=== PATIENT | male | born 1945 | race Caucasian/White ===

== ENCOUNTER 2023-03-27 12:52 | Emergency (ER) | payer OTHER ==
[~2023-03-27] VITALS: Ht 185.4 cm; Wt 68.0 kg
[~2023-03-27 12:52] MED LIST: ACET500 PO; ALBU90OI INH; AZIT250 PO; GUAI600T33 PO; IBUP200 PO; OXYC5 PO; PRED20 PO; VISBIOME 112.51 EACH PO; WIXELA 250-501 EAC1 INH
[2023-03-27 13:41] LABS: BASOPHILS ABSOLUTE AUTO 0.03 K/mm3 (0.00-0.23); BASOPHILS PERCENT AUTO 0 % (0-2); EOSINOPHILS PERCENT AUTO 9 % (0-6); Hematocrit 39.4 % (37.0-53.0); Hemoglobin 13.1 g/dL (13.5-17.5); IMMATURE GRAN ABSOLUTE AUTO 0.02 K/mm3 (0.00-0.10); IMMATURE GRAN PERCENT AUTO 0 % (0-1); LYMPHOCYTES ABSOLUTE AUTO 0.48 K/mm3 (0.84-5.20); LYMPHOCYTES PERCENT AUTO 7 % (21-46); MONOCYTES ABSOLUTE AUTO 0.79 K/mm3 (0.16-1.47); MONOCYTES PERCENT AUTO 12 % (4-13); Mean Corpuscular HGB 32.9 pg (26.0-34.0); Mean Corpuscular HGB Conc 33.2 g/dL (31.5-36.5); Mean Corpuscular Volume 99 fL (80-100); NEUTROPHILS ABSOLUTE AUTO 4.85 K/mm3 (1.96-9.15); NEUTROPHILS PERCENT AUTO 72 % (41-73); Platelet Count 248 K/mm3 (150-400); RDW Coefficient Variation 13.3 % (11.7-14.2); RDW Standard Deviation 48.8 fL (35.1-46.3); Red Blood Cell Count 3.98 M/mm3 (4.30-5.90); White Blood Cell Count 6.77 K/mm3 (4.00-11.30)
[2023-03-27 13:58] LABS: Albumin, Blood 3.4 g/dL (3.4-5.0); Albumin/Globulin Ratio 0.9 (0.8-1.8); Bun/Creatinine Ratio 28.9 (12.0-20.0); Calcium, Blood 8.6 mg/dL (8.5-10.1); Creatinine, Blood 0.66 mg/dL (0.60-1.20); Globulin, Blood 3.8 g/dL (2.2-4.0); Potassium, Blood 3.8 mmol/L (3.5-5.5); Total Protein, Blood 7.2 g/dL (6.4-8.2)
[2023-03-27 15:15] VITALS: BP 117/79
== END 2023-03-27 15:15 | disposition home or self-care (01) ==
LOC: ER 12:52
PROVIDERS: Emergency Medicine
DX: J93.9 Pneumothorax, unspecified (principal); Z87.891 Personal history of nicotine dependence; J44.9 Chronic obstructive pulmonary disease, unspecified; Z79.51 Long term (current) use of inhaled steroids; Z79.899 Other long term (current) drug therapy; Z79.2 Long term (current) use of antibiotics
CPT/HCPCS: 32551; 71045; 80053; 83880; 84484; 85025; 93005; 93010; 94644; 94664; 96374-59; 99284-25; J2930; J7030

== ENCOUNTER 2023-03-30 08:56 | Inpatient (IN) | payer OTHER ==
[~2023-03-30] VITALS: Ht 185.4 cm; Wt 49.0 kg
[2023-03-30 10:44] LABS: BASOPHILS ABSOLUTE AUTO 0.04 K/mm3 (0.00-0.23); BASOPHILS PERCENT AUTO 1 % (0-2); EOSINOPHILS ABSOLUTE AUTO 0.66 K/mm3 (0.00-0.68); EOSINOPHILS PERCENT AUTO 8 % (0-6); Hematocrit 43.2 % (37.0-53.0); Hemoglobin 14.1 g/dL (13.5-17.5); IMMATURE GRAN ABSOLUTE AUTO 0.02 K/mm3 (0.00-0.10); IMMATURE GRAN PERCENT AUTO 0 % (0-1); LYMPHOCYTES ABSOLUTE AUTO 0.89 K/mm3 (0.84-5.20); LYMPHOCYTES PERCENT AUTO 10 % (21-46); MONOCYTES ABSOLUTE AUTO 0.71 K/mm3 (0.16-1.47); MONOCYTES PERCENT AUTO 8 % (4-13); Mean Corpuscular HGB 32.9 pg (26.0-34.0); Mean Corpuscular HGB Conc 32.6 g/dL (31.5-36.5); Mean Corpuscular Volume 101 fL (80-100); Mean Platelet Volume 8.6 fL (9.1-12.4); NEUTROPHILS ABSOLUTE AUTO 6.38 K/mm3 (1.96-9.15); NEUTROPHILS PERCENT AUTO 73 % (41-73); Platelet Count 288 K/mm3 (150-400); RDW Coefficient Variation 13.6 % (11.7-14.2); RDW Standard Deviation 50.7 fL (35.1-46.3); Red Blood Cell Count 4.29 M/mm3 (4.30-5.90)
[2023-03-30 10:51] LABS: Albumin, Blood 3.6 g/dL (3.4-5.0); Albumin/Globulin Ratio 0.9 (0.8-1.8); Bilirubin, Total 0.8 mg/dL (0.1-1.0); Bun/Creatinine Ratio 36.3 (12.0-20.0); Calcium, Blood 8.9 mg/dL (8.5-10.1); Creatinine, Blood 0.55 mg/dL (0.60-1.20); Globulin, Blood 3.8 g/dL (2.2-4.0); Potassium, Blood 4.4 mmol/L (3.5-5.5); Total Protein, Blood 7.4 g/dL (6.4-8.2)
[2023-03-30 15:23] VITALS: BP 107/70
--- NOTE | 2023-03-30 16:46 | NUR ---
EVENING NOTE PT RESTING QUIETLY. DR REYES ROUNDED ON PT. CALLED ICU TO COME VERIFY FUNCTION OF CHEST TUBE. CHEST TUBE TO WALL SUCTION AT [address] REYES AWARE OF AIR LEAK. CHEST TUBE TUBING JOINTS TAPED. TUBE CLOTHES PINNED TO GOWN. VSS. MEDICATED FOR PAIN X1. PT DRINKING ORANGE SODA AND RESTING. VOIDED X1. FIRE PREVENTION EDCUATION AND IGNITION SOURCE DONE. PT EXPRESSED UNDERSTANDING. CONTINUE POC.
[2023-03-31 05:32] VITALS: BP 99/63
--- NOTE | 2023-03-31 06:36 | NUR ---
VSS ON RA, AOX4, USED URINAL LAST NIGHT, UNDERSTANDS IMPORTANCE OF CHEST TUBE. 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 DARK URINE, PT DRANK MORE SODA THAN WATER LAST NIGHT. DENIES SIGNIFICANT PAIN. CXR DONE AROUND 0600, AWAITING RESULTS.
[2023-03-31 07:23] VITALS: BP 101/68
--- NOTE | 2023-03-31 14:07 | NUR ---
PT ADVISED OF FIRE PROTOCOLS AND PROCEDURES. EDUCATION PROVIDED ABOUT IGNITION SOURCES. PT IS ON RA. PT VERBALIZED UNDERSTANDING.
[2023-03-31 15:27] VITALS: BP 102/72
--- NOTE | 2023-03-31 18:14 | NUR ---
SHIFT SUMMARY PT AOX4, INDEPENDENT IN THE ROOM WITH HELP WITH LINES. CHEST TUBE IN PLACE, PATENT, AND DRAINING. PT PLACED ON THIS AFTERNOON DUE TO SOB BY RT. ORDER IN THE CHART. C/O NECK PAIN AND MEDICATED PER THE EMAR. BREATHING TX IN PLACE. WILL REPORT TO ONCOMING NURSE.
[2023-03-31 20:02] VITALS: BP 97/68
[2023-04-01 02:05] VITALS: BP 96/68
--- NOTE | 2023-04-01 04:55 | NUR ---
SHIFT SUMMARY: WILFREDO IS A&OX4. VSS, NO ACUTE EVENTS OVERNIGHT. PT DID REQUIRE AN INCREASE IN THE O2 VIA NC TO 3 LPM WHILE SLEEPING D/T DESATURATION IN THE 80'S. PT IS CONTINENT OF BLADDER AND BOWEL, USING THE URINAL AND BEDSIDE COMMODE WITHOUT DIFFICULTY. HE IS TOLERATING PO INTAKE WELL AND USES THE CALL LIGHT APPROPRIATELY. CHEST TUBE TO -20 SUCTION. HE IS LYING IN BED WITH THE CALL LIGHT IN REACH. WCTM UNTIL REPORT IS GIVEN TO DAY SHIFT RN. CONTINUOUS PULSE OXIMETER IN PLACE.
[2023-04-01 07:50] VITALS: BP 96/63
[2023-04-01 16:00] VITALS: BP 91/53
--- NOTE | 2023-04-01 16:19 | NUR ---
DAYSHIFT SUMMARY Patient alert & oriented x4. Chest tube in placed connected to suction. MD reported leak is present, no plans to remove today. Will continue to montior chest tube. Patient reports mild-moderate pain, PRN Oxycodone effective. Provided education to patient r/t ignition sources and risk of injury when oxygen in use. Patient verbalized understanding and denies smoking and or ignition sources in possession. Vital signs stable, afebrile. Will continue plan of care.
[2023-04-01 19:44] VITALS: BP 101/67
[2023-04-02 03:30] VITALS: BP 90/65
--- NOTE | 2023-04-02 05:14 | NUR ---
SHIFT SUMMARY: WILFREDO IS A&OX4. VSS, NO ACUTE EVENTS OVERNIGHT. HE IS TOLERATING PO INTAKE WELL, UTILIZING THE URINAL WITHOUT DIFFICULTY, SCDs IN PLACE, AND USES THE CALL LIGHT APPROPRIATELY. CHEST TUBE TO LEFT UPPER CHEST WALL TO -20 SUCTION, BUBBLES PRESENT IN CANISTER. HE REPORTS ADEQUATE PAIN CONTROL WITH 5 MG OF OXYCODONE. HE IS LYING IN BED WITH THE CALL LIGHT IN REACH, CONTINUOUS PULSE OX IN PLACE. [facility] UTIL REPORT IS GIVEN TO DAY SHIFT RN.
[2023-04-02 07:55] VITALS: BP 93/60
--- NOTE | 2023-04-02 18:24 | NUR ---
PT IS A/OX4, PLEASANT AND COOPERATIVE. THE PT IS UP WITH ASSIST. PT IS ON 02 @ 2L/MIN VIA NC., CONTINUOS BIOX ON PT DESAT'S WITH O2 OFF BUT QUICKLY RECOVERS WHEN APPLIED. PT HAS A CHEST TUBE SECURE AND INPLACE. THE PT WAS MEDICATED FOR PAIN X1 SO FAR TODAY. CALL LIGHT IN REACH. WILL CONTINUE TO MONITOR AND ASSESS FOR CHANGES
[2023-04-02 19:42] VITALS: BP 105/71
--- NOTE | 2023-04-02 22:22 | NUR ---
CHEST TUBE LOOKED AT CHEST TUBE HAD EXESS BUBBLING MORE THAN I LIKE TO SEE PT NOT IN DISTRESS O2 AT 94%, I INFORMED THE CHARGE NURSE SORAIDA AND HE REPLIED THAT MD WAS AWARE OR POSSIBLE LEAK. I THEN APPLIED WATER PROOF OCCLUSIVE DRESSING COVERED WITH TEGADERM AND WILL MONITOR. CREPITUS NOTED TO LEFT PECTORUS AND SHOULDER.
--- NOTE | 2023-04-03 03:52 | NUR ---
SHIFT SUMMARY NOTED BEFORE DRESSING OVER CHEST TUBE INSERTION SO FAR HAS HELPED WITH EXCESS BUBBLING BUT STILL NOT COMPLETELY STOPPED, DR SALGUERO NOTIFIED. NO C/O PAIN NOR DISTRESS O2 AT 97% ON HE 2 L. PT UP AT BESIDE BY SELF STATES WILL REQUEST HELP IF WANTING TO SAND UP. PT NOW SLEEPING COMFORTABLEY IN BED.
[2023-04-03 05:12] VITALS: BP 93/61
[2023-04-03 07:39] VITALS: BP 88/60
[2023-04-03 14:44] VITALS: BP 104/68
[2023-04-03 15:55] VITALS: BP 97/64
--- NOTE | 2023-04-03 16:24 | NUR ---
PT IS A/OX4, PLEASANT AND COOPERATIVE. THE PT IS UP TO THE SIDE OF THE BED IND. THE PT APPEARS TO BE BREATHING EASILY ON O2 @ 2L/MIN AT THIS TIME. DR. MONSIVAIS WAS IN TO SEE THE PT THIS AM AND STATED THAT THE CHEST TUBE WAS FUNCTIONING PROPERLY. THE PT WAS MEDICATED FOR PAIN X1 SO FAR THIS SHIFT. CALL LIGHT IN REACH. WILL CONTINUE TO MONITOR AND ASSESS FOR CHANGES
[2023-04-03 19:18] VITALS: BP 98/63
[2023-04-04 03:16] VITALS: BP 84/53
--- NOTE | 2023-04-04 04:01 | NUR ---
SHIFT SUMMARY PT DOING WELL TODAY MAINTIANING HIGH O2 LEVEL CCHEST TUBE IN PLACCE BUT WILL POSSIBLY NEED ANOTHER PLACED TO HELP WITH LUNG EXPANSION. C/O NECK AND SHOULDER PAIN AND WAS MEDICATED VIA ORDERS. ENC PT TO REPOSITION IN BED BUT STATES HE IS VERY COMFORTABLE IN HIS CRAMPPED POSITION.
[2023-04-04 08:13] VITALS: BP 98/63
--- NOTE | 2023-04-04 09:00 | NUR ---
pt laying in bed awake a/ox4, cooperative with care, follows commands well, reports pain in his neck, will medicate, lungs are clear dim t/o, on 2 liters, denies pain with deep breath, c.t in place to lcw, to suction, hrr, no edema noted, ppps+1, cap refill <3sec, vs stable, afebrile, iv site is clear and patent, bt x4, abd flat soft nontender, voids without diff, skin c/w/d, lisa, john, call light in reach.
[2023-04-04 15:33] VITALS: BP 99/67
--- NOTE | 2023-04-04 18:15 | NUR ---
pt doing ok, chest tube unchanged, medicated for pain several times this shift. call light in reach.
[2023-04-04 19:30] VITALS: BP 105/70
[2023-04-05 04:51] VITALS: BP 93/57
--- NOTE | 2023-04-05 04:54 | NUR ---
SHIFT SUMMARY PT DOING WELL TODAY NO CHANGE IN CONDITION MERARI CHEST TUBE WELL EVEN THOUGH SMALL LEAK IS NOTED. PT SAT 97 ON ROOM AIR AT REST. PAIN INCREASED TO NECK AREA MD NOTED HE IS AWARE AND WILL DO XRAY TOMORROW. PT UP AT SIDE OF BED USING URINAL MAINTAINS O2 SAT WITHOUT ANY DISTRESS. PAIN COVERED BY PRESCRIBED MEDICATIONS.
[2023-04-05 07:36] VITALS: BP 93/60
[2023-04-05 15:31] VITALS: BP 98/55
--- NOTE | 2023-04-05 16:13 | NUR ---
Palliative Care Consult for AD/POLST Pt A&OX4 and reports 5/10 pain. He reports current regimen is managing his pain. Pt reports not currently . Has been 3 times in the past and has a son who he does not have contact with. Pt reports currently having a girlfriend. He reports living on a friend's property and he assists with looking out for his friend's mother. Pt reports being anxious about going home due to a lot of choirs that need to be accomplished. Pt reports this is his 3rd occurance of having a pneumothorx, 2 on one side and one on the other. Engaged in therapeutic conversation regarding advanced directives and POLSTs. Educated on AD/POST with Pt reporting wanting to time to consider if he is interested in either. Ended visit to allow Pt to rest. Spoke with Pt's primary RN Arianna and discussed case. Palliative Care will remain available
--- NOTE | 2023-04-05 17:21 | NUR ---
SHIFT SUMMARY PT HAD XR OF NECK/CHEST THIS AM. SHOWED SLIGHT IMPROVEMENT TO PNEUMOTHORAX. PLAN FOR ANOTHER XRAY TOMORROW. PT AGREEABLE TO GET OOB FOR MEALS. UP TO CHAIR FOR LUNCH TODAY. NO OTHER ACUTE CHANGES IN ASSESSMENT AT THIS TIME. SEE EMAR FOR PAIN ACCOUNT DIRECTOR. CALL LIGHT IN REACH. DENIES OTHER NEEDS AT THIS TIME.
--- NOTE | 2023-04-05 18:40 | NUR ---
REFUSED TO GET OUT OF BED FOR DINNER
[2023-04-05 19:50] VITALS: BP 100/65
[2023-04-06 03:57] VITALS: BP 93/62
[2023-04-06 05:32] LABS: BASOPHILS ABSOLUTE AUTO 0.04 K/mm3 (0.00-0.23); BASOPHILS PERCENT AUTO 0 % (0-2); EOSINOPHILS ABSOLUTE AUTO 0.65 K/mm3 (0.00-0.68); EOSINOPHILS PERCENT AUTO 7 % (0-6); Hematocrit 36.3 % (37.0-53.0); Hemoglobin 12.1 g/dL (13.5-17.5); IMMATURE GRAN ABSOLUTE AUTO 0.03 K/mm3 (0.00-0.10); IMMATURE GRAN PERCENT AUTO 0 % (0-1); LYMPHOCYTES ABSOLUTE AUTO 0.53 K/mm3 (0.84-5.20); LYMPHOCYTES PERCENT AUTO 6 % (21-46); MONOCYTES ABSOLUTE AUTO 0.88 K/mm3 (0.16-1.47); MONOCYTES PERCENT AUTO 9 % (4-13); Mean Corpuscular HGB 32.1 pg (26.0-34.0); Mean Corpuscular HGB Conc 33.3 g/dL (31.5-36.5); Mean Corpuscular Volume 96 fL (80-100); Mean Platelet Volume 9.3 fL (9.1-12.4); NEUTROPHILS ABSOLUTE AUTO 7.37 K/mm3 (1.96-9.15); NEUTROPHILS PERCENT AUTO 78 % (41-73); Platelet Count 343 K/mm3 (150-400); RDW Coefficient Variation 13.2 % (11.7-14.2); RDW Standard Deviation 47.1 fL (35.1-46.3); Red Blood Cell Count 3.77 M/mm3 (4.30-5.90)
[2023-04-06 06:01] LABS: Bun/Creatinine Ratio 24.9 (12.0-20.0); Calcium, Blood 8.8 mg/dL (8.5-10.1); Creatinine, Blood 0.64 mg/dL (0.60-1.20); Potassium, Blood 4.1 mmol/L (3.5-5.5)
[2023-04-06 07:33] VITALS: BP 99/69
[2023-04-06 17:25] VITALS: BP 97/54
--- NOTE | 2023-04-06 17:50 | NUR ---
SUMMARY- PT A/O X4. CHEST TUBE TO 30MM/HG SUCTION. 15ML OUTPUT IN 48HRS- CREPITUS TO SURROUNDING AREA OVER CT SITE. PT COARSE UPPER AIRWAY, MOIST FREQ CONGESTED COUGH, NOT CLEARING A LOT OF SECRESIONS. MIN AMOUNT UP INTO TISSUE STRINGY OFF WHITE. ENC PEP DEVICE AND I.S.. UP TO CHAIR FOR MEALS. PLAN FOR PORT CXR TOMORROW- CT OF CHEST CANCELLED FOR NOW UNTIL PT ABLE TO TRANSFER ON WATER SEAL OR CT DC'D. PT TOLERATING ABOUT 25% OF MEALS, TOLERATING ABOUT 2 SUPPLEMENTS A SHIFT WITH ENCOURAGEMENT. NECK PAIN IS NOT CONTROLLED WITH CURRENT REGIMINE. ASKED DR BERMAN ABOUT ADDING ADDITIONAL PAIN MED OR INCREASING OXY, STARTED TORADOL- PT STATES PAIN STILL CONT AT LOWEST 6/10 AFTER MEDS GIVEN. USING HEAT PAD AND ROLL FOR NECK. WILL REPORT TO NOC RN
[2023-04-06 19:28] VITALS: BP 91/62
[2023-04-07 05:06] VITALS: BP 106/66
--- NOTE | 2023-04-07 05:31 | NUR ---
SHIFT SUMMARY PT IS A&O4, UP SB TO THE BR, THORAVENT HOOKED TO 30MM/HG SUCTION PER ORDER, 2L NC, SATS MID 90'S, PRN PAIN MEDICATION GIVEN THIS SHIFT, FIRE MITIGATION EDUCATION PROVIDED, AIR LEAK NOTED IN CHEST TUBE PROVIDER AWARE, PNUEMO SLOWLY RESOLVING, CONTINUE POC
[2023-04-07 06:16] LABS: Bun/Creatinine Ratio 38.6 (12.0-20.0); Calcium, Blood 8.8 mg/dL (8.5-10.1); Creatinine, Blood 0.67 mg/dL (0.60-1.20); Potassium, Blood 4.3 mmol/L (3.5-5.5)
[2023-04-07 07:43] VITALS: BP 94/67
[2023-04-07 10:10] VITALS: BP 91/67
--- NOTE | 2023-04-07 17:27 | NUR ---
SHIFT SUMMARY NO ACUTE CHANGES NOTED DURING SHIFT. PT ALERT AND ORIENTED, CALLS APPROPRIATELY. PT REMAINS ON 2L. PT STILL HAS CHEST TUBE, CONNECTED TO SUCTION @ 30. NO OUTPUT NOTED DURING SHIFT. PT C/O PAIN TO NECK, MEDICATED PER EMAR MULTIPLE TIMES. WILL CONTINUE TO MONITOR. CALL LIGHT WITHIN REACH.
[2023-04-07 19:52] VITALS: BP 105/74
--- NOTE | 2023-04-08 03:06 | NUR ---
SHIFT SUMMARY NOC PT A/O X 4. PLEASANT AND COOPERATIVE WITH CARE. PT HAS CHEST TUBE IN LEFT ANTERIOR CHEST WALL. PNEUMOTHORAX HAS RESOLVED. CHEST TUBE PER DR REYES PROGRESS NOTE TO BE PUT UNDER H20 SEAL AND REMOVED LATER TODAY. PT IS ANXIOUS TO DISCHARGE HOME. ON O2 2L/NC SPO2 >92%. PT CHRONIC NECK PAIN MANAGED PER EMAR. CT SCAN WILL BE PERFORMED TO CHECK CHEST TUBE SEALING. PT IS CURRENTLY RESTING WITH BED IN LOWEST POSITION, AND CALL LIGHT WITHIN REACH. PT EDUCATED ON [facility] FIRE SAFETY IGNITION/EXPLOSIVE NON SMOKING POLICY AND VERBALIZED UNDERSTANDING.
[2023-04-08 04:00] VITALS: BP 101/64
[2023-04-08 07:59] VITALS: BP 102/67
[2023-04-08 16:23] VITALS: BP 102/60
--- NOTE | 2023-04-08 16:28 | NUR ---
REPORT RECEIVED FROM CAYETANO YBARRA. THIS NURSE TO ASSUME CARE AT THIS TIME. PT CHEST TUBE SETTINGS VERIFIED. NO SOURCES OF IGNITION OR RISK FOR FIRE AT THIS TIME.
--- NOTE | 2023-04-08 18:10 | NUR ---
SHIFT SUMMARY PT AXO, PLEASANT AND COOPERATIVE WITH CARE. NO ACUTE CHANGES SINCE THIS NURSE ASSUMED CARE. PT DENIES ANY NEEDS AT THIS TIME. DENIES SOURCES OF IGNITION OR SMOKING. PT RESTING COMFORTABLY AT THIS TIME. BED IN LOW POSITION, CALL LIGHT WITIN REACH
[2023-04-08 20:34] VITALS: BP 101/70
[2023-04-09 03:57] VITALS: BP 100/64
--- NOTE | 2023-04-09 04:34 | NUR ---
SHIFT SUMMARY; NO ACUTE CHANGES OVERNIGHT. THE PT IS AXO X4 AND A STANDBY ASSIST. HOWEVER, T/O THE NIGHT THE PT USES THE URINAL INDEPENDENTLY IN BED. THE PT IS ON 3L NC WITH O2 SATS >90%. THE PT HAS A CHEST TUBE IN THE L UPPER CHEST WALL, IT IS PATENT. THE PT HAS A WET/SEMIPRODUCTIVE COUGH. HOWEVER, THE PT STATES THAT HE TRIES NOT TO COUGH IT HURTS. I EDUCATED THE PT ON THE IMPORTANCE OF COUGHING GIVEN HE HAS PNEUMONIA. THE PT DENIES ANY SOB, CHEST PAIN/PRESSURE OR N/V THIS SHIFT. CURRENTLY THE PT IS SLEEPING IN BED WITH THE BED IN THE LOWEST POSITION AND THE CALL LIGHT AT BEDSIDE. FIRE SAFETY MAINTAINED T/O THE SHIFT. FIRE RISK ASSESSED.
[2023-04-09 07:34] VITALS: BP 92/62
[2023-04-09 14:51] VITALS: BP 97/65
--- NOTE | 2023-04-09 18:39 | NUR ---
SHIFT SUMMARY- PT HAS HAD NO ACUTE CHANGE TODAY. DR HARRIS CAME TO SEE HIM AND STATED THE LUNG IS NOW UP AND INFLATED AND SEEMS TO BE HEALING. PLAN IS TO KEEP THE CHEST TUBE IN FOR A COUPLE MORE DAYS (CONNECTED TO SUCTION) AND THEN ATTEMPT TO DC IT. PT IS IN BED, HE HAS BEEN INDEPENDENT TO THE BSC AND THE CHAIR. PT HAS HAD CHEST TUBES IN THE PAST AND IS AWARE OF THE CAUTION NEEDED WHEN MOVING. PT IS IN BED SITTING UP EATING DINNER. NO CURRENT S&S OF DISTRESS.
[2023-04-09 19:32] VITALS: BP 95/65
[2023-04-10 02:12] VITALS: BP 97/68
--- NOTE | 2023-04-10 04:00 | NUR ---
SHIFT SUMMARY; NO ACUTE CHANGES OVERNIGHT. THE PT IS AXO X4 AND A STANDBY ASSIST TO USE THE BSC HOWEVER, THROUGHOUT THE NIGHT THE PT USES THE URINAL INDEPENDENTLY IN THE BED. THE PT IS ON 3L NC WITH O2 SATS >92%. THE PTS CHEST TUBE IS STILL PATENT AND SET TO -3O CM H2O SUCTION W/ NO OUTPUT OVERNIGHT. THE PT WAS MEDICATED ONCE LAST NIGHT FOR NECK PAIN W/ MILD RELIEF. THE PT HAS BEEN RESTING IN BED FOR THE ENTIRETY OF THE NIGHT. THE PT DENIES ANY CHEST PAIN/PRESSURE, SOB OR N/V. CURRENTLY THE PT IS SLEEPING IN BED WITH THE BED IN THE LOWEST POSITION AND THE CALL LIGHT AT BEDSIDE. FIRE SAFETY MAINTAINED T/O THE NIGHT.
[2023-04-10 05:51] LABS: BASOPHILS ABSOLUTE AUTO 0.06 K/mm3 (0.00-0.23); BASOPHILS PERCENT AUTO 1 % (0-2); EOSINOPHILS ABSOLUTE AUTO 1.19 K/mm3 (0.00-0.68); EOSINOPHILS PERCENT AUTO 17 % (0-6); Hematocrit 35.8 % (37.0-53.0); Hemoglobin 11.5 g/dL (13.5-17.5); IMMATURE GRAN ABSOLUTE AUTO 0.06 K/mm3 (0.00-0.10); IMMATURE GRAN PERCENT AUTO 1 % (0-1); LYMPHOCYTES ABSOLUTE AUTO 0.84 K/mm3 (0.84-5.20); LYMPHOCYTES PERCENT AUTO 12 % (21-46); MONOCYTES ABSOLUTE AUTO 0.79 K/mm3 (0.16-1.47); MONOCYTES PERCENT AUTO 11 % (4-13); Mean Corpuscular HGB 31.1 pg (26.0-34.0); Mean Corpuscular HGB Conc 32.1 g/dL (31.5-36.5); Mean Corpuscular Volume 97 fL (80-100); Mean Platelet Volume 8.8 fL (9.1-12.4); NEUTROPHILS ABSOLUTE AUTO 4.01 K/mm3 (1.96-9.15); NEUTROPHILS PERCENT AUTO 58 % (41-73); Platelet Count 549 K/mm3 (150-400); RDW Coefficient Variation 13.5 % (11.7-14.2); RDW Standard Deviation 48.2 fL (35.1-46.3); White Blood Cell Count 6.95 K/mm3 (4.00-11.30)
[2023-04-10 06:16] LABS: Bun/Creatinine Ratio 34.2 (12.0-20.0); Calcium, Blood 8.7 mg/dL (8.5-10.1); Creatinine, Blood 0.59 mg/dL (0.60-1.20); Potassium, Blood 4.3 mmol/L (3.5-5.5)
[2023-04-10 07:15] VITALS: BP 89/68
[2023-04-10 10:36] VITALS: BP 93/62
[2023-04-10 16:00] VITALS: BP 96/64
[2023-04-10 19:44] VITALS: BP 105/66
--- NOTE | 2023-04-10 19:46 | NUR ---
SHIFT SUMMARY- PT HAS HAD NO ACUTE CHANGE T/O THE SHIFT, CONTINUES TO BE INDEPENDENT TO THE BSC AND ABLE TO CALL FOR ASSISTANCE NEEDED. BPS HAVE BEEN A BIT LOW BUT SEEMS TO BE A BASELINE. CHEST TUBE IN PLACE CONNECTED TO SUCTION. DR HARRIS IS FOLLOWING NEXT CHEST X-RAY ORDERED FOR TOMORROW MORNING.
[2023-04-11 02:27] VITALS: BP 94/69
--- NOTE | 2023-04-11 05:04 | NUR ---
SHIFT SUMMARY; NO ACUTE CHANGES OVERNIGHT. THE PT IS AXO X4 AND INDEPENDENT IN THE ROOM. THE PT HAS REQUESTED PAIN MEDICATION A FEW TIMES FOR NECK PAIN BUT OTHERWISE DENIES ANY OTHER PAIN. THE PT DOES HAVE A CHEST TUBE IN PLACE IN THE LUCW, NO DRAINAGE OVERNIGHT. THE PTS CHEST TUBE IS SET TO -30CM H2O SUCTION. THE PT IS ON 3L NC WITH O2 SATS >90%. THE PT DENIES ANY CHEST PAIN/PRESSURE, SOB OR N/V. CURRENTLY THE PT IS SLEEPING IN BED WITH THE BED IN THE LOWEST POSITION AND THE CALL LIGHT AT BEDSIDE. FIRE SAFETY MAINTAINED T/O THE NIGHT.
[2023-04-11 10:55] VITALS: BP 100/68
[2023-04-11 16:30] VITALS: BP 103/74
--- NOTE | 2023-04-11 18:04 | NUR ---
SHIFT SUMMARY: Pt remains A&O X3 this shift. VSS, Chest tube removed by dr aldana pm. Pt resp even nonlabored. Denies SOB. Remains on 3L NC. Pt OOB to BSC independently. BM this am. Voiding per urinal. Tolerating diet. Neck pain managed with heating pad and po pain med. No further needs id at this time. Call light in reach, bed locked in lowest position. Fire/ignition safety rounds completed Q 1 hour.
[2023-04-11 19:56] VITALS: BP 101/66
[2023-04-12 06:10] VITALS: BP 92/60
--- NOTE | 2023-04-12 06:19 | NUR ---
SHIFT SUMMARY A/OX4, IND TO BSC. SPO2 >92% ON 3L NC. DENIES CHEST PAIN/PRESSURE. VSS, NO ACUTE CHANGES AT THIS TIME. BED IN LOWEST POSITION WITH CALL LIGHT IN REACH. WILL CONTINUE TO MONITOR AND REPORT TO ONCOMING RN.
[2023-04-12 08:06] VITALS: BP 97/66
--- NOTE | 2023-04-12 10:21 | NUR ---
ASSUMED CARE AND COMFORT OF THIS PATIENT AT 0715 THIS AM. FIRE SAFETY DISCUSSION WITH PATIENT. NO CONCERNS NOTED. PATIENT ANXIOUS TO BE DISCHARGED TO HOME TODAY. PATIENT HAS CONCERNS ABOUT BEING WEAK AND NOT ABLE TO CARE FOR HIMSELF. HAS GIRLFRIEND AT HOME WHO HAS VOLUNTEERED TO TAKE CARE OF HIM. WILL REMAIN AVAILABLE FOR THIS PATIENT FOR ANY WANTS OR NEEDS UNTIL DISCHARGE.
== END 2023-04-12 12:45 | disposition home or self-care (01) | DRG 199 ==
LOC: ER 08:56 → MEDS 12:20 → ENPENDDIS 04-12 10:03 → MEDS 04-12 12:45
PROVIDERS: Internal Medicine; Physician Assistant; ADMIT Internal Medicine
DX: S27.0XXA Traumatic pneumothorax, initial encounter (principal); E43 Unspecified severe protein-calorie malnutrition; J18.9 Pneumonia, unspecified organism; R64 Cachexia; Z68.1 Body mass index [BMI] 19.9 or less, adult; Z51.5 Encounter for palliative care; T79.7XXA Traumatic subcutaneous emphysema, initial encounter; M47.812 Spondylosis without myelopathy or radiculopathy, cervical region; G89.4 Chronic pain syndrome; J44.9 Chronic obstructive pulmonary disease, unspecified; W19.XXXA Unspecified fall, initial encounter; Z79.51 Long term (current) use of inhaled steroids; Z99.81 Dependence on supplemental oxygen; Z79.891 Long term (current) use of opiate analgesic; Z79.2 Long term (current) use of antibiotics; Z87.01 Personal history of pneumonia (recurrent); Z98.890 Other specified postprocedural states; Z87.891 Personal history of nicotine dependence; Z79.899 Other long term (current) drug therapy
CPT/HCPCS: 32551; 36415; 71045; 71046; 71260; 72040; 80048; 80053; 84145; 85025; 94640; 94664; 94760; 94761; 94762; 96374-59; 99285-25; A9270; J1885; J3010; Q9967

== ENCOUNTER 2024-07-19 17:35 | Inpatient (IN) | payer OTHER ==
[~2024-07-19] VITALS: Ht 185.4 cm; Wt 51.1 kg
[~2024-07-19 17:35] MED LIST changes: +AMOCLA875 PO; +GABA300 PO
[2024-07-19] MEDS ORDERED: Ipratropium Bromide INH 0.02% 0.5 mg/2.5ML Vial INH SCH (17:45)
[2024-07-19] MEDS ORDERED: Albuterol 2.5 MG/3 ML VIAL INH ONE (17:45)
[2024-07-19 18:06] LABS: BASOPHILS ABSOLUTE AUTO 0.05 K/mm3 (0.00-0.23); BASOPHILS PERCENT AUTO 1 % (0-2); EOSINOPHILS PERCENT AUTO 2 % (0-6); Hematocrit 42.7 % (37.0-53.0); Hemoglobin 13.5 g/dL (13.5-17.5); IMMATURE GRAN ABSOLUTE AUTO 0.02 K/mm3 (0.00-0.10); IMMATURE GRAN PERCENT AUTO 0 % (0-1); LYMPHOCYTES ABSOLUTE AUTO 0.34 K/mm3 (0.84-5.20); LYMPHOCYTES PERCENT AUTO 4 % (21-46); MONOCYTES ABSOLUTE AUTO 0.41 K/mm3 (0.16-1.47); MONOCYTES PERCENT AUTO 5 % (4-13); Mean Corpuscular HGB 29.3 pg (26.0-34.0); Mean Corpuscular HGB Conc 31.6 g/dL (31.5-36.5); Mean Corpuscular Volume 93 fL (80-100); Mean Platelet Volume 8.5 fL (9.1-12.4); NEUTROPHILS ABSOLUTE AUTO 8.02 K/mm3 (1.96-9.15); NEUTROPHILS PERCENT AUTO 89 % (41-73); Platelet Count 259 K/mm3 (150-400); RDW Coefficient Variation 14.5 % (11.7-14.2); RDW Standard Deviation 48.5 fL (35.1-46.3); White Blood Cell Count 9.04 K/mm3 (4.00-11.30)
[2024-07-19 18:27] LABS: Albumin, Blood 3.7 g/dL (3.4-5.0); Albumin/Globulin Ratio 0.9 (0.8-1.8); Bun/Creatinine Ratio 22.5 (12.0-20.0); Calcium, Blood 9.2 mg/dL (8.5-10.1); Creatinine, Blood 0.8 mg/dL (0.60-1.20); Magnesium, Blood 3.6 mg/dL (1.6-2.4); Potassium, Blood 4.4 mmol/L (3.5-5.5); Total Protein, Blood 7.7 g/dL (6.4-8.2)
[2024-07-19 18:53] LABS: Influenza A, PCR NEGATIVE (NEGATIVE); Influenza B, PCR NEGATIVE (NEGATIVE); Resp Syncytial Virus, PCR NEGATIVE (NEGATIVE); SARS-Cov-2 (COVID-19) PCR, MMC NEGATIVE (NEGATIVE)
[2024-07-19] MEDS ORDERED: Albuterol 2.5 MG/3 ML VIAL INH PRN (19:55)
[2024-07-19] MEDS ORDERED: NS 1,000 ML IV SCH (20:00)
[2024-07-19] MEDS ORDERED: Ondansetron HCl 2 MG / ML 2ML Vial IV PRN (20:00)
[2024-07-19] MEDS ORDERED: FLU VACC TS2024-25(6MOS UP)/PF 45 MCG/0.5 ML SYRINGE IM SCH (20:00)
[2024-07-19] MEDS ORDERED: Ipratropium/Albuterol SulF 2.5-0.5MG/3 ML Amp INH SCH (20:00)
[2024-07-19] MEDS ORDERED: TIOT18 INH (20:56)
[2024-07-19] MEDS ORDERED: Azithromycin 500 MG in NS 250 ML IV SCH (21:00)
[2024-07-19] MEDS ORDERED: Celecoxib 100 MG Cap PO SCH (21:00)
[2024-07-19 21:55] VITALS: BP 105/65
[2024-07-19] MEDS ORDERED: [UNRECOGNIZED DRUG - REMARK] (21:57)
--- NOTE | 2024-07-19 22:59 | NUR ---
ARRIVAL TO PCU PT A/O X 4. COOPERATIVE WITH CARE. COVERING HEAD WITH BLANKET, WHEN ASKED WHY PT STATES "I DON'T KNOW, JUST LIKE HIDING". ABLE TO STATE MOST HOME MEDS EXCEPT THAT HE TAKES "A THYROID PILL" BUT UNSURE WHAT IT IS. VSS. ON 4L VIA NC WITH SPO2 98%. TITRATED TO 2L VIA NC. NS AT 100ML/HR. DENIES SOB AT THIS TIME. EDUCATING ON CALLING FOR ASSISTANCE WHEN GETTING OOB. PT AGREEABLE. CALL LIGHT IN REACH
[2024-07-19 23:17] VITALS: BP 107/70
[2024-07-20] MEDS ORDERED: MethylPREDNISolone Sod Succ 125 MG Vial IV SCH
[2024-07-20 03:25] VITALS: BP 107/80
--- NOTE | 2024-07-20 06:18 | NUR ---
SHIFT SUMMARY NO ACUTE EVENTS T/O NIGHT. ON RA SPO2 DOWN TO 84%. PT PLACED BACK ON 1L VIA NC. VSS. PT DENIES SOB, OR PAIN. USES URINAL TO VOID. NS AT 100ML/HR. WILL REPORT OFF TO ONCOMING RN.
[2024-07-20 07:23] VITALS: BP 108/73
--- NOTE | 2024-07-20 08:23 | NUR ---
transfer of care note jovann rn assumed care at 0700. vital signs stable. medical status no tele. spo2 >90% on room air. patient was desatting when eating and placed back on oxygen at 2l nc. patient is alert and oriented x4. neuro is intact. patient is able to make needs known. denies pain, chest pain/pressure or shortness of breath. see shift assessment for further detials this rn gave report to leno robins on medical floor. patient moving to room 332. patient updated and belognings gathered. once patient is done eating will move to new room
[2024-07-20] MEDS ORDERED: Enoxaparin 40 MG/0.4 ML SYR SC SCH (09:00)
--- NOTE | 2024-07-20 09:00 | NUR ---
ASSUMED CARE NOTE ASSUMED CARE OF PATIENT THIS MORNING. ARRIVED VIA WHEELCHAIR FROM PCU, REPORT RECIEVED FROM LINDA MONTEIRO. PATIENT A/OX4, ABLE TO MAKE NEEDS KNOWN. ORIENTED TO ROOM AND CALL LIGHT. PLEASANT AND COOPERATIVE WITH CARE, PATIENT ON 2LPM ACUTE OXYGEN USE VIA NASAL CANNULA. SKIN ASSESSMENT COMPLETED UPON TRANSFER TO ROOM 332. VSS. NO OTHER CONCERNS AT THIS TIME.
[2024-07-20 09:35] VITALS: BP 109/73
--- NOTE | 2024-07-20 10:40 | NUR ---
Patient transferred @ 9am, Wil Watson, 78/M wht and vitals, pleasant mood, no requests at this time. call light provided
[2024-07-20] MEDS ORDERED: PRED20 PO (14:29)
--- NOTE | 2024-07-20 18:05 | NUR ---
DISCHARGE NOTE PATIENT A/OX4, ABLE TO MAKE NEEDS KNOWN. PATIENT STATED THAT HIS FRIEND WOULD BE HERE AT 1300 TO PICK HIM UP AND THAT HE "NEEDED HIS PRESCRIPTIONS" SO HE "COULD LEAVE". PATIENT EDUCATED THAT HE WAS NOT DISCHARGING YET, HE REFUSED TO COMPLETE HIS HOME O2 STUDY WITH RESPIRATORY THERAPY AND HE HAD BEEN NEEDING SUPPLEMENTARY OXYGEN AT 2LPM VIA NASAL CANNULA. MD CALLED AND INFORMED OF PATIENT WISHES. RESPIRATORY TEHRAPY CALLED TO INITIATE NEW HOME O2 EVAL, PATIENT PASSED AND DID NOT QUALIFY FOR HOME O2. NEW MEDICATIONS WERE FAXED TO [facility] IN [facility], PER PATIENT REQUEST. PIV REMOVED PRIOR TO DISCHARGE. DISCHARGE EDUCATION PROVIDED AND PATIENT AGREEABLE. NO OTHER CONCERNS. FLEXVLADJulius ASSISTSED TO FRIEND'S VEHICLE BY PATIENT'S CHOICE [facility].
[2024-07-20] MEDS ORDERED: Protein Supplement 30 ML UD PO SCH (21:00)
[2024-07-20] MEDS ORDERED: Gabapentin 300 MG Cap PO SCH (21:00)
== END 2024-07-20 17:24 | disposition home or self-care (01) | DRG 189 ==
LOC: ER 17:35 → MEDS 19:54 → ERHOLD 19:54 → PCU 21:39 → MEDS 07-20 09:02 → ENPENDDIS 07-20 17:05 → MEDS 07-20 17:24
PROVIDERS: Student in an Organized Health Care Education/Training Program; ADMIT Internal Medicine
PROC: 5A09357 Assistance with Respiratory Ventilation, Less than 24 Consecutive Hours, Continuous Positive Airway Pressure (ICD-10-PCS; principal; 2024-07-19)
DX: J96.01 Acute respiratory failure with hypoxia (principal); J44.1 Chronic obstructive pulmonary disease with (acute) exacerbation; E46 Unspecified protein-calorie malnutrition; Z68.1 Body mass index [BMI] 19.9 or less, adult; R64 Cachexia; G89.29 Other chronic pain; J43.9 Emphysema, unspecified; Z87.891 Personal history of nicotine dependence; Z79.51 Long term (current) use of inhaled steroids; Z79.899 Other long term (current) drug therapy; Z79.2 Long term (current) use of antibiotics
CPT/HCPCS: 0241U; 71045; 80053; 83735; 83880; 84484; 85025; 93005; 93010; 94640; 94644; 94660; 94664; 94760; 94761; 94762; 99285-25; A9270; J0456; J1650; J2919; J7030; J7050